=== PATIENT | male | born 1965 | race African-American/Black ===

== ENCOUNTER 2016-12-10 14:38 | Emergency (ER) | payer MEDICARE, MEDICAID ==
[~2016-12-10] VITALS: Ht 175.3 cm; Wt 104.5 kg
[2016-12-10] MEDS ORDERED: ENAL20TA PO (15:00)
[2016-12-10] MEDS ORDERED: HYDR25TA PO (15:00)
[2016-12-10] MEDS ORDERED: INSLAN SQ (15:00)
[2016-12-10] MEDS ORDERED: INSU100C14 SQ (15:00)
[2016-12-10] MEDS ORDERED: NIFE60TA81 PO (15:00)
[2016-12-10] MEDS ORDERED: KETOROLAC TROMETHAMINE 60 MG/2 ML VIAL IM ONE (15:45)
[2016-12-10 18:15] VITALS: BP 135/81
== END 2016-12-10 18:18 | disposition home or self-care (01) ==
LOC: EMS 14:41
DX: S06.0X0A Concussion without loss of consciousness, initial encounter (principal); S13.4XXA Sprain of ligaments of cervical spine, initial encounter; S39.92XA Unspecified injury of lower back, initial encounter; I10 Essential (primary) hypertension; E11.9 Type 2 diabetes mellitus without complications; V49.09XA Driver injured in collision with other motor vehicles in nontraffic accident, initial encounter; Y93.89 Activity, other specified; Y92.89 Other specified places as the place of occurrence of the external cause; Y99.8 Other external cause status; Z88.2 Allergy status to sulfonamides
CPT/HCPCS: 72040; 72070; 96372; 99284; J1885; 82962

== ENCOUNTER 2016-12-10 20:07 | Emergency (ER) | payer MEDICARE, MEDICAID ==
[~2016-12-10] VITALS: Ht 175.3 cm; Wt 100.0 kg
[~2016-12-10 20:07] MED LIST: ENAL20TA PO; HYDR25TA PO; INSLAN SQ; INSU100C14 SQ; NIFE60TA81 PO
[2016-12-10 20:27] LABS: GLUCOSE,POINT OF CARE 124 MG/DL (70-110)
[2016-12-10] MEDS ORDERED: LIDOCAINE HCL BUFFERED 1% 20 ML VIAL INJ ONE (23:30)
[2016-12-11 01:15] VITALS: BP 69/75
== END 2016-12-11 01:39 | disposition home or self-care (01) ==
LOC: EMS 20:08
DX: S61.210A Laceration without foreign body of right index finger without damage to nail, initial encounter (principal); E11.9 Type 2 diabetes mellitus without complications; I10 Essential (primary) hypertension; Z88.2 Allergy status to sulfonamides; Z79.4 Long term (current) use of insulin; W25.XXXA Contact with sharp glass, initial encounter; Y93.89 Activity, other specified; Y92.89 Other specified places as the place of occurrence of the external cause; Y99.8 Other external cause status
CPT/HCPCS: 12001; 73130; 82962; 99284; J3490